=== PATIENT | male | born 1985 | race Two or more races ===

== ENCOUNTER → 2025-04-07 08:49 | Outpatient (REF) | payer BC, SELFPAY ==
[2025-04-07 09:58] LABS: Hematocrit 47.0 % (39.0-52.0); Hemoglobin 15.7 g/dL (13.0-18.0); Mean Corp Hgb Conc. 33.4 g/dL (33.0-37.0); Mean Corpuscular Volume 87.5 fL (80.0-94.0); Nucleated Red Blood Cells % 0 % (-); Platelet Count 233 10^3/uL (130-400); Red Cell Dist. Width 12.9 % (11.5-14.5)
[2025-04-07 10:23] LABS: ALT (SGPT) 21 U/L (0-50); AST (SGOT) 18 U/L (17-59); Albumin 4.7 g/dl (3.5-5.0); Alkaline Phosphatase 99 U/L (38-126); Blood Urea Nitrogen 19 mg/dl (9-20); Calcium 9.4 mg/dl (8.4-10.2); Carbon Dioxide 26 mmol/L (22-30); Chloride 108 mmol/L (98-107); Glucose 102 mg/dl (70-99); HDL Cholesterol 51 mg/dl; LDL Cholesterol, Calculated 171 mg/dl; Potassium 4.9 mmol/L (3.5-5.1); Sodium 141 mmol/L (135-145); Total Protein 7.5 g/dl (6.3-8.2); Very Low Density Lipoprotein 18 mg/dl (0-30); eGFR > 60.00
[2025-04-07 11:54] LABS: Glycohemoglobin (HgbA1c) 5.3 % (4.0-5.9)
== END ==
LOC: REG 08:49
DX: Z00.01 Encounter for general adult medical examination with abnormal findings (principal); Z83.3 Family history of diabetes mellitus
CPT/HCPCS: 36415; 80053; 80061; 83036; 84443; 85025

== ENCOUNTER → 2025-05-27 14:38 | Outpatient (REF) | payer BC, SELFPAY | LOC: RAD 14:38 | PROVIDERS: ATTENDING PHYSICIAN Internal Medicine; FAMILY PHYSICIAN Internal Medicine | DX: R07.82 Intercostal pain (principal); R07.81 Pleurodynia | CPT/HCPCS: 71046; 71110; 71260; Q9967 ==